=== PATIENT | male | born 2000 | race Caucasian/White ===

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

== ENCOUNTER 2022-09-23 15:28 | Emergency (ER) | payer BC, OTHER ==
[2022-09-23] MEDS ORDERED: LIDOCAINE HCL 2% (20ML MULTI-DOSE VIAL) INF ONE (15:48)
[2022-09-23] MEDS ORDERED: morphine CARPU-JECT 4 MG/1 ML DISP.SYRIN IVPUSH ONE (15:48)
[2022-09-23 16:08] VITALS: BP 115/70; PULSE 114; RESP 20; TEMP 98.6; BMI 32.3
== END 2022-09-23 16:50 | disposition home or self-care (01) ==
LOC: JERFT 15:28
PROC: 0RSJXZZ Reposition Right Shoulder Joint, External Approach (ICD-10-PCS; principal; 2022-09-23)
PROC: 3E033NZ Introduction of Analgesics, Hypnotics, Sedatives into Peripheral Vein, Percutaneous Approach (ICD-10-PCS; 2022-09-23)
DX: S43.004A Unspecified dislocation of right shoulder joint, initial encounter (principal); Y93.83 Activity, rough housing and horseplay
CPT/HCPCS: 73030-TC-RT-FY; 99284-25

== ENCOUNTER 2025-07-18 16:59 | Emergency (ER) | payer BC ==
[2025-07-18 17:24] VITALS: BP 125/89; PULSE 56; RESP 20; TEMP 98.4; BMI 26.3
[2025-07-18] MEDS ORDERED: DEXTROSE 5%-NORMAL SALINE 1,000 ML IV ONE (18:23)
[2025-07-18] MEDS ORDERED: HALOPERIDOL LACTATE 5 MG/ML ONE (19:00)
[2025-07-18] MEDS ORDERED: ONDANSETRON 4 MG/2 ML VIAL ONE (19:00)
[2025-07-18] MEDS ORDERED: FAMOTIDINE 20 MG/50 ML IVPB 20 MG/50 ML MG IVPB ONE (19:00)
[2025-07-18 19:01] LABS: ABSOLUTE IMMATURE GRANULOCYTES 0.01 x10^3/uL (0.0-0.031); BASOPHILS # 0.02 x10^3/uL (0.01-0.08); EOSINOPHIL % 2.8 % (0.8-7.0); EOSINOPHILS # 0.26 x10^3/uL (0.04-0.54); MCHC 33.8 g/dl (32.3-36.5); MEAN CELL VOLUME 84.6 fl (79.0-92.2); MEAN PLT VOLUME 9.3 fl (9.4-12.4); MONOCYTE # 0.99 x10^3/uL (0.30-0.82); MONOCYTE % 10.7 % (5.3-12.2); RDW 12.1 % (11.9-15.3)
[2025-07-18] MEDS: HALOPERIDOL LACTATE 5 MG/ML IVPUSH ONE (19:01)
[2025-07-18] MEDS: ONDANSETRON 4 MG/2 ML VIAL IVPUSH ONE (19:02)
[2025-07-18] MEDS: SODIUM CHLORIDE 0.9% 500 ML INFUS.BAG IV ONE (19:02)
[2025-07-18] MEDS: FAMOTIDINE 20 MG/50 ML IVPB 20 MG/50 ML MG IVPB ONE (19:02)
[2025-07-18 19:26] LABS: ALK PHOS 86.0 U/L (45-117); CO2 26.0 mmol/L (21-32); CREATININE 0.9 mg/dl (0.6-1.3); GLUCOSE,RANDOM 111.0 mg/dl (74-106); SGOT/AST 14.0 U/L (15-37); SGPT/ALT 10.0 U/L (7-52); TOT PROT 7.6 g/dl (6.4-8.2)
[2025-07-18 22:34] LABS: HIV INTERPRETATION NEGATIVE (NEGATIVE)
[2025-07-18 22:35] LABS: HCV DIAGNOSTIC IN-HOUSE W/RFLX NON-REACTIVE (NONREACTIVE)
== END 2025-07-18 20:32 | disposition home or self-care (01) ==
LOC: FER 16:59
PROC: 3E033GC Introduction of Other Therapeutic Substance into Peripheral Vein, Percutaneous Approach (ICD-10-PCS; principal; 2025-07-18)
PROC: 3E033GC Introduction of Other Therapeutic Substance into Peripheral Vein, Percutaneous Approach (ICD-10-PCS; 2025-07-18)
PROC: 3E033GC Introduction of Other Therapeutic Substance into Peripheral Vein, Percutaneous Approach (ICD-10-PCS; 2025-07-18)
DX: K29.70 Gastritis, unspecified, without bleeding (principal); F12.988 Cannabis use, unspecified with other cannabis-induced disorder; R11.2 Nausea with vomiting, unspecified; R94.31 Abnormal electrocardiogram [ECG] [EKG]
CPT/HCPCS: 36415; 71046-TC-FY; 80053; 83690; 83735; 85025; 86803; 87389; 93005; 99285-25